=== PATIENT | male | born 1965 | race Caucasian/White ===

== ENCOUNTER 2022-01-23 07:54 | Outpatient (CLI) | payer BC, SELFPAY ==
--- NOTE | ~2022-01-23 | MR_ITS ---
EXAMINATION: MR knee RT wo con DATE: 01/23/2022 08:29 INDICATION: Sprain of the medial collateral ligament of the right knee TECHNIQUE: Magnetic resonance imaging (MRI) of the right knee was performed without intravenous contr ast. Sequences included coronal PD-weighted FSE, coronal PD-weighted FS FSE, sagittal T2-weighted FS E, sagittal PD-weighted FS FSE and axial PD weighted fat saturated FSE. COMPARISON: None. FINDINGS: Medial compartment: The proximal tear at the body and posterior horn of the medial meniscus. Articular cartilage is tashia l. Lateral compartment: Lateral meniscus is normal. Articular cartilage is normal. Patellofemoral compartment: Small region of partial-thickness chondral fissuring without degenerative subchondral changes at the medial margin of the medial patellar facet. Shallow chondral fissuring with surface irregularity jamilah g the inferomedial aspect of the medial trochlea. Ligaments and tendons: Anterior and posterior cruciate ligaments are normal. The medial collateral ligament and fibular felicia ateral ligament complex are normal. The extensor mechanism is normal. The visualized medial and later al hamstring tendons as well as the iliotibial band are normal. Fluid: Physiologic amount of fluid in the joint space. No loose osteochondral bodies identified. Osseous/other: Normal marrow signal. No fracture or pathologic marrow replacing process. IMPRESSION: 1. Complex tear of the medial meniscus. 2. 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 Reviewed, dictated and finalized at location A. E SPECIALIST IMPRESSION: 1. Complex tear of the medial meniscus. 2. Mild patellofemoral osteoarthritis with small regions of moderate grade judy dromalacia at the medial patellar facet and medial trochlea.
== END 2022-01-23 07:55 ==
PROVIDERS: PCP Internal Medicine; Visit Provider Orthopaedic Surgery
DX: S83.411A Sprain of medial collateral ligament of right knee, initial encounter (principal); S83.231A Complex tear of medial meniscus, current injury, right knee, initial encounter; M17.11 Unilateral primary osteoarthritis, right knee; M22.41 Chondromalacia patellae, right knee; T14.90XA Injury, unspecified, initial encounter
CPT/HCPCS: 73721